=== PATIENT | male | born 1970 | race Caucasian/White ===

== ENCOUNTER → 2016-11-30 08:41 | Outpatient (CLI) | payer MEDICAID | END | disposition home or self-care (01) | LOC: D.US 08:41 | DX: R74.8 Abnormal levels of other serum enzymes (principal) ==

== ENCOUNTER → 2020-06-25 14:37 | Outpatient (CLI) | payer BC | END | disposition home or self-care (01) | LOC: D.MRI 14:37 | PROVIDERS: ATTEND Orthopaedic Surgery | DX: S46.292A Other injury of muscle, fascia and tendon of other parts of biceps, left arm, initial encounter (principal) ==